=== PATIENT | female | born 1995 | race Caucasian/White ===

== ENCOUNTER 2016-08-27 21:39 | Emergency (ER) | payer OTHER ==
[~2016-08-27] VITALS: Ht 165.1 cm; Wt 78.1 kg
[2016-08-27 21:41] VITALS: BP 132/91
[2016-08-27 23:27] LABS: HCG UR OBC PASS
== END 2016-08-27 23:42 | disposition home or self-care (01) ==
LOC: ED 23:30
DX: N30.90 Cystitis, unspecified without hematuria (principal); R31.9 Hematuria, unspecified
CPT/HCPCS: 81001; 81025; 87077; 87086; 87186; 99284